=== PATIENT | female | born 1940 | race African-American/Black ===

== ENCOUNTER 2020-12-02 13:30 | Outpatient (RCR) | payer MEDICARE, SELFPAY ==
[2020-09-06 12:19] VITALS: PULSE 79
--- NOTE | 2020-09-13 12:39 | PCCPR ---
Sister, Errol called. Pt does not plan to attend [facility] today because she is not feeling up to it.
--- NOTE | 2020-11-10 13:36 | PCCPR ---
Pt cxl today due to weather and lack of motivation
--- NOTE | 2020-11-29 09:43 | PCCPR ---
Absent due to cold weather Spoke with Errol Dong's sister and she did not feel she would be able to come any earlier and would not make it today. She plans to reaccess on Sun and let us know if there is more snow.
== END 2020-12-02 23:59 | disposition home or self-care (01) ==
LOC: ANHCPREHAB 13:30
DX: Z95.5 Presence of coronary angioplasty implant and graft (principal)
CPT/HCPCS: 93798

== ENCOUNTER 2020-12-20 13:30 | Outpatient (RCR) | payer MEDICARE, SELFPAY ==
[2020-12-06 00:04] VITALS: PULSE 79
== END 2020-12-20 18:30 | disposition home or self-care (01) ==
LOC: ANHCPREHAB 13:30
DX: Z95.5 Presence of coronary angioplasty implant and graft (principal)
CPT/HCPCS: 93798

== ENCOUNTER 2023-01-19 15:41 | Emergency (ER) | payer MEDICARE, SELFPAY ==
--- NOTE | ~2023-01-19 | CT_ITS ---
EXAMINATION: CT brain wo con DATE: 01/19/2023 17:35 INDICATION: Fall TECHNIQUE: Computed tomography (CT) of the head was performed without intravenous contrast. The mA wa s adjusted according to patient size. Iterative reconstruction technique was employed. Exam dose: 60 5.33 mGy-cm total exam DLP. COMPARISON: None FINDINGS: There is central and cortical cerebral atrophy including prominent temporal horns. No intracranial mass lesion or hemorrhage, midline shift or mass effect or subdural or epidural hemat luis is detected. There are bilateral carotid siphon internal carotid artery calcifications in addition to some vertebr al artery calcification is nonspecific diminished attenuation of the cerebral white matter, likely du e to chronic small vessel ischemic changes. Minimal bilateral basal ganglia calcification. Included paranasal sinuses and mastoid air cells are unremarkable. Bilateral hyperostosis frontalis interna. No skull fracture or bone destruction is detected. IMPRESSION: Cerebral atherosclerosis and chronic small vessel ischemic changes of the cerebral white matter Central and cortical cerebral atrophy No skull fracture or acute intracranial finding Reviewed, dictated and finalized at [facility] Reviewed, dictated and finalized at [facility].
--- NOTE | ~2023-01-19 | XR_ITS ---
XR hip RT 2V w AP pelvis DATE: 01/19/2023 18:01 INDICATION: Fall. Posterior right hip pain. TECHNIQUE: AP pelvis. AP and lateral views of right hip COMPARISON: None FINDINGS: There is multilevel prominent degenerative disc disease of the lumbar and lumbosacral spine . No pelvic fracture or bone destruction. The sacroiliac joints and pubic symphysis are intact. No fracture or dislocation, avascular necrosis or bone destruction of the right hip. IMPRESSION: No right hip fracture or dislocation is detected. Degenerative changes of the lumbar/lumbosacral spine Reviewed, dictated and finalized at [facility].
--- NOTE | ~2023-01-19 | XR_ITS ---
XR shoulder RT min 2V DATE: 01/19/2023 18:02 INDICATION: Fall. Generalized right shoulder pain TECHNIQUE: 4 views of right shoulder COMPARISON: None FINDINGS: Diffuse osteopenia. There is evidence of rotator cuff atrophy of the right shoulder. Normal alignment at the acromioclavi cular and glenohumeral joints is noted otherwise. No fracture or dislocation, periosteal reaction or bone destruction or abnormal right shoulder soft tissue calcification is noted. Prominent aortic arch calcification. Cardiac valve replacement is noted. Pacemaker leads are noted. IMPRESSION: Osteopenia Right rotator cuff atrophy No fracture or dislocation of the right shoulder is detected Reviewed, dictated and finalized at [facility].
[2023-01-19 15:50] VITALS: BP 136/82; PULSE 78; RESP 20; TEMP 37.2; O2SAT 100
--- NOTE | 2023-01-19 17:32 | ED.FALL ---
HPI - Fall General Chief Complaint: Fall Stated Complaint: FALL. FACIAL INJURY/RIGHT SHOULDER Time Seen by Provider: 01/19/23 16:59 Source: patient, family and RN notes reviewed Mode of arrival: ambulatory Limitations: dementia History of Present Illness HPI Narrative: This is an 82 year old female with history of dementia and chronic back pain who presents with her sister for evaluation of right shoulder pain s/p fall. PAtient's sister states that patient tripped over curb and she fell forward hitting her face. She has right lower lip wound and right shoulder pain. PAtient is also complaining of right hip pain but her sister states this is chronic. She denies LOC. She does not think patient is on blood thinners. Related Data Home Medications Medication Instructions Recorded Confirmed clopidogrel 75 mg tablet 75 mg PO DAILY 08/21/19 09/06/20 furosemide 20 mg tablet 20 mg PO DAILY 08/21/19 09/06/20 lisinopril 40 mg tablet 40 mg PO DAILY 08/21/19 09/06/20 loratadine 10 mg capsule 10 mg PO DAILY 08/21/19 09/06/20 magnesium oxide 400 mg PO DAILY 08/21/19 09/06/20 memantine 10 mg tablet 10 mg PO BID 08/21/19 09/06/20 multivitamin,tx-minerals 1 cap PO DAILY 08/21/19 09/06/20 (Multi-Vitamin HP/Minerals capsule) spironolactone 25 mg tablet 25 mg PO DAILY 08/21/19 09/06/20 acetaminophen 325 mg tablet 650 mg PO TID 09/06/20 09/06/20 amlodipine 10 mg tablet 10 mg PO DAILY 09/06/20 09/06/20 aspirin 81 mg tablet 81 mg PO DAILY 09/06/20 09/06/20 famotidine 40 mg tablet 40 mg PO DAILY 09/06/20 09/06/20 ferrous sulfate 325 mg (65 mg 325 mg PO DAILY 09/06/20 09/06/20 iron) tablet lidocaine 4 % topical patch 2 patch topical DAILY 09/06/20 09/06/20 (Blue-Emu Lidocaine Patch) metoprolol succinate 100 mg 50 mg PO DAILY 09/06/20 09/06/20 tablet,extended release 24 hr tramadol 50 mg tablet 25 mg PO Q6H PRN Pain 09/06/20 09/06/20 Allergies Allergy/AdvReac Type Severity Reaction Status Date / Time sulfamethoxazole Allergy Mild Unknown Verified 01/19/23 16:58 trimethoprim Allergy Mild Unknown Verified 01/19/23 16:58 simvastatin AdvReac Mild Rash Verified 01/19/23 16:58 Review of Systems Review of Systems: All systems reviewed & are unremarkable except as noted in HPI and below PMFSH Past Medical History Medical History Dementia History of transcatheter aortic valve replacement (TAVR) Hypertension Family History Family History (Updated 09/06/20 @ 12:06 by Elizabeth Barrios RN) Sibling High cholesterol Hypertension Cardiovascular disease Diabetes mellitus Cancer Social History Social History Smoking status: Never smoker Gender identity (if verbalized by the patient): Female Exam Const: General: no acute distress and alert Nutritional Appearance: well nourished Other: oriented to person and place HENMT: Head: normal to inspection Ears: external ears normal Face/Nose/Sinus: Normal external nose present Face and sinus: normal facial exam Mouth: Yes moist mucous membranes Teeth and gingiva: dentition normal Throat: posterior oropharynx normal and uvula midline Other: right lower lip swelling with abrasion Eyes: Conjunctivae: conjunctivae normal Pupils: Equal, round and reactive pupils present EOM: EOMs intact bilaterally Neck: Neck: normal visual inspection Chest: Chest palpation & inspection: normal inspection of the chest Resp: Effort & Inspection: normal respiratory effort Auscultation: clear to auscultation bilaterally Cardio: Rate: regular rate Rhythm: regular rhythm Heart sounds: Murmur heart sound present Back/Spine/Pelvis: Back: no CVA tenderness Skin: General skin exam: normal color Rashes: no rashes Wounds: no wounds Neuro: General: moves all extremities, no meningeal signs and CN's II-XI intact bilaterally Cranial nerves: Yes Nystagmus not present Speech: normal speec
[2023-01-19] MEDS: TETANUS,DIPHTHERIA,AC PERTUSSIS ADULT (0.5 ML) BOOSTRIX IM (18:12)
[2023-01-19] MEDS: ACETAMINOPHEN 500 MG TABLET 1000 MG PO (18:19)
== END 2023-01-19 18:47 | disposition home or self-care (01) ==
PROVIDERS: Emergency Provider General Practice
DX: S49.91XA Unspecified injury of right shoulder and upper arm, initial encounter (principal); S00.531A Contusion of lip, initial encounter; S09.90XA Unspecified injury of head, initial encounter; Z23 Encounter for immunization; F03.90 Unspecified dementia, unspecified severity, without behavioral disturbance, psychotic disturbance, mood disturbance, and anxiety; I10 Essential (primary) hypertension; Z79.82 Long term (current) use of aspirin; I67.2 Cerebral atherosclerosis; M85.821 Other specified disorders of bone density and structure, right upper arm; M51.36 Other intervertebral disc degeneration, lumbar region; M51.37 Other intervertebral disc degeneration, lumbosacral region; W10.1XXA Fall (on)(from) sidewalk curb, initial encounter
CPT/HCPCS: 70450; 73030; 73502; 90471; 90715; 99284; A9270

== ENCOUNTER 2024-10-22 18:23 | Emergency (ER) | payer MEDICARE, OTHER, SELFPAY ==
[2024-10-22 18:41] VITALS: BP 145/100; PULSE 103; RESP 20; TEMP 36.5; O2SAT 100
--- NOTE | 2024-10-22 18:55 | ED_ITS ---
HPI - URI/Sore Throat General Chief Complaint: Nausea/Vomiting/Diarrhea Stated Complaint: N/V/Weakness Time Seen by Provider: 10/22/24 18:55 Source: patient Mode of arrival: ambulatory Limitations: no limitations History of Present Illness HPI Narrative: 84 yo F with N/V at assisted living facility today. Vomited once and then feelt better. c/o headache and fatigue. States has upset stomach, no pain. Hx of Alzheimer. Is at a memory care center. Facility has familt pic pt up to have her seen. Pt is well appearing. Alert and well appearing. No URI symptoms. No UTI symptoms. all systems reviewed and negative except as noted above. Related Data Home Medications ?Medication ?Instructions ?Recorded ?Confirmed ?Last Taken ?Type clopidogrel 75 mg tablet 75 mg PO DAILY 08/21/19 09/06/20 Unknown History furosemide 20 mg tablet 20 mg PO DAILY 08/21/19 09/06/20 Unknown History lisinopril 40 mg tablet 40 mg PO DAILY 08/21/19 09/06/20 Unknown History loratadine 10 mg capsule 10 mg PO DAILY 08/21/19 09/06/20 Unknown History magnesium oxide 400 mg PO DAILY 08/21/19 09/06/20 Unknown History memantine 10 mg tablet 10 mg PO BID 08/21/19 09/06/20 Unknown History multivitamin,tx-minerals 1 cap PO DAILY 08/21/19 09/06/20 Unknown History (Multi-Vitamin HP/Minerals capsule) spironolactone 25 mg tablet 25 mg PO DAILY 08/21/19 09/06/20 Unknown History acetaminophen 325 mg tablet 650 mg PO TID 09/06/20 09/06/20 Unknown History amlodipine 10 mg tablet 10 mg PO DAILY 09/06/20 09/06/20 Unknown History aspirin 81 mg tablet 81 mg PO DAILY 09/06/20 09/06/20 Unknown History famotidine 40 mg tablet 40 mg PO DAILY 09/06/20 09/06/20 Unknown History ferrous sulfate 325 mg (65 mg 325 mg PO DAILY 09/06/20 09/06/20 Unknown History iron) tablet lidocaine 4 % topical patch 2 patch topical DAILY 09/06/20 09/06/20 Unknown History (Blue-Emu Lidocaine Patch) metoprolol succinate 100 mg 50 mg PO DAILY 09/06/20 09/06/20 Unknown History tablet,extended release 24 hr tramadol 50 mg tablet 25 mg PO Q6H PRN Pain 09/06/20 09/06/20 Unknown History Allergies Allergy/AdvReac Type Severity Reaction Status Date / Time sulfamethoxazole Allergy Mild Unknown Verified 10/22/24 18:26 trimethoprim Allergy Mild Unknown Verified 10/22/24 18:26 simvastatin AdvReac Mild Rash Verified 10/22/24 18:26 Review of Systems Review of Systems: CONSTITUTIONAL: Denies fever, chills, or sweats. reports fatigue. EYES: Denies visual changes, redness, or discharge. ENT: Denies rhinorrhea, congestion, sore throat, or otalgia. CARDIOVASCULAR: Denies chest pain, palpitations, or edema. RESPIRATORY: Denies cough or dyspnea. GASTROINTESTINAL: Denies abdominal pain . Reports nausea, vomiting. Denies diarrhea. GENITOURINARY: Denies dysuria or hematuria. SKIN: Denies rash or itching. MUSCULOSKELETAL: Denies back pain, joint pain, or myalgia. NEUROLOGIC: reports headache. Denies numbness, or weakness. PSYCHIATRIC: Denies anxiety or depression. All other systems reviewed are negative, except as documented in HPI. [facility] Past Medical History Medical History Dementia History of transcatheter aortic valve replacement (TAVR) Hypertension Family History Family History (Updated 09/06/20 @ 12:06 by Elizabeth Barrios RN) Sibling High cholesterol Hypertension Cardiovascular disease Diabetes mellitus Cancer Social History Social History Smoking status: Never smoker Gender identity (if verbalized by the patient): Female Comments At time of signature, agree with nursing past medical, surgical, social and family history. There is no relevant family history pertinent to the presenting complaint. Exam Narrative: GENERAL: This is a well-nourished, well-developed patient, in no apparent distress. HEAD: normocephalic, atraumatic. EYES: PERRL. Sclera clear/white. Vision is grossly intact. EARS: External ears normal, auditory canals clear and without drainage, TMs normal without perforation. Hearing grossly intact. NOSE: External nose normal with no obvious nasal discharge, nares without redness, no rhinorrhea. THROAT: Mucous membranes moist, posterior pharynx clear. NECK: Neck supple, non-tender without lymphadenopathy, masses or thyromegaly. CARDIOVASCULAR: Regular rate and rhythm without murmurs, gallops, or rubs. RESPIRATORY: Clear to auscultation. Breath sounds equal bilaterally. No wheezes, rales, or rhonchi. GASTROINTESTINAL: Abdomen soft, non-tender, nondistended. Bowel sounds are active. No hepato-splenomegaly, or palpable masses. No guarding. SKIN: warm, Dry, intact with no suspicious lesions or rash, good texture and turgor. NEURO: awake, alert, and oriented to person, place and time. There were no obvious focal neurologic abnormalities. EXTREMITIES: No joint tenderness, effusion, or edema noted. Course Course Level of Care: Express Care Visit Vital Signs Vital signs: Vital Signs Temperature 36.5 C 10/22/24 18:41 Pulse Rate 103 H 10/22/24 18:41 Respiratory Rate 20 10/22/24 18:41 Blood Pressure 145/100 H 10/22/24 18:41 Pulse Oximetry 100 10/22/24 18:41 Oxygen Delivery Room Air 10/22/24 18:41 Temperature 36.5 C 10/22/24 18:41 Pulse Rate 86 10/22/24 19:05 Respiratory Rate 20 10/22/24 19:05 Blood Pressure 138/90 10/22/24 19:05 Pulse Oximetry 99 10/22/24 19:05 Oxygen Delivery Room Air 10/22/24 19:05 Reviewed MDM - URI/Sore Throat MDM Narrative Medical decision making narrative: patient is well-appearing. Awake and talkative. Well-appearing, nontoxic. Negative COVID and influenza. No vomiting while at [facility]. Does voice upset stomach, headache, fatigue. Will prescribe a dance drawn for patient's symptoms, possibly viral gastroenteritis. Recommend family watch patient's symptoms closely since just starting and take her to ER for concerns for dehydration or abdominal pain. Patient is aware of diagnosis, understands and agrees to treatment plan. Anticipatory guidance given. Patient agrees to follow-up as directed and is aware of reasons to seek care at the emergency department. Portions of this record may have been created with voice recognition software Lab Data Labs: Lab Results 10/22/24 Range/Units 18:47 POC Influenza A Ag Negative (Negative) POC Influenza B Ag Negative (Negative) POC SARS CoV-2 Ag Negative (Negative) Discharge Plan Discharge Clinical Impression: Viral gastroenteritis Patient Disposition: Home, Self-Care Condition: Stable Instructions: Gastroenteritis (ED), Acute Nausea and Vomiting (ED) Additional Instructions: Letitia's covid and influenza test was negative today. Her symptoms are viral and may last 7 to 10 days. Give zofran as needed for nausea and vomiting. This medication may cause constipation and abdominal bloating. Give plenty of fluids to prevent dehydation. If you have concerns for dehydration or if Letitia is experiencing abdominal pain go to the ER. Patient Language: Ethiopian Prescriptions: New ondansetron 4 mg tablet,disintegrating 4 mg PO Q8H PRN (Reason: nausea and vomiting) Qty: 12 0RF No Action clopidogrel 75 mg Tablet 75 mg PO DAILY furosemide 20 mg Tablet 20 mg PO DAILY lisinopril 40 mg Tablet 40 mg PO DAILY loratadine 10 mg Capsule 10 mg PO DAILY magnesium oxide 400 mg magnesium Tablet 400 mg PO DAILY memantine 10 mg Tablet 10 mg PO BID Multi-Vitamin HP/Minerals Capsule 1 cap PO DAILY spironolactone 25 mg Tablet 25 mg PO DAILY metoprolol succinate 100 mg Tablet Extended Release 24 Hr 50 mg PO DAILY Rx Instructions: 0.5 TAB DAILY acetaminophen 325 mg Tablet 650 mg PO TID lidocaine [Blue-Emu Lidocaine Patch] 4 % Adhesive Patch,Medicated 2 patch TOPICAL DAILY famotidine 40 mg Tablet 40 mg PO DAILY tramadol 50 mg Tablet 25 mg PO Q6H PRN (Reason: Pain) amlodipine 10 mg Tablet 10 mg PO DAILY ferrous sulfate 325 mg (65 mg iron) Tablet 325 mg PO DAILY Adult Aspirin 81 mg Tablet 81 mg PO DAILY Follow-up/Referrals: PHYSICIAN NOT ON STAFF,NONSTAFF [Primary Care Provider] - Time of Disposition: 19:10
[2024-10-22 19:05] VITALS: BP 138/90; PULSE 86; RESP 20; O2SAT 99
[2024-10-22 19:13] LABS: EDCOVIDSCREEN Negative (Negative)
[2024-10-22 19:14] LABS: EDINFLUASCREEN Negative (Negative); EDINFLUBSCREEN Negative (Negative)
== END 2024-10-22 19:20 | disposition home or self-care (01) ==
PROVIDERS: Emergency Provider Nurse Practitioner Family
DX: A08.4 Viral intestinal infection, unspecified (principal); G30.9 Alzheimer's disease, unspecified; F02.80 Dementia in other diseases classified elsewhere, unspecified severity, without behavioral disturbance, psychotic disturbance, mood disturbance, and anxiety; I10 Essential (primary) hypertension; Z20.822 Contact with and (suspected) exposure to COVID-19
CPT/HCPCS: 87426; 87804; 99213; G0463